=== PATIENT | male | born 1990 | race American Indian/Alaskan Native ===

== ENCOUNTER 2017-12-21 14:50 | Emergency (ER) | payer SELFPAY ==
[2017-12-21 15:55] LABS: Basophils % (Auto) 0.3 % (0.0-1.8); Eosinophils % (Auto) 0.3 % (0.0-4.3); Hematocrit 41.9 % (35.5-45.6); Hemoglobin 13.9 gm/dl (11.8-15.2); Lymphocytes # (Auto) 1.5 K/mm3 (1.2-5.4); Mean Corpuscular HGB Conc 33 % (32-34); Mean Corpuscular Hemoglobin 30 pg (28-32); Mean Corpuscular Volume 89 fl (84-94); Monocytes # (Auto) 0.4 K/mm3 (0.0-0.8); Monocytes % (Auto) 10.4 % (0.0-7.3); Platelet Count 165 K/mm3 (140-440); Red Blood Count 4.72 M/mm3 (3.65-5.03); Red Cell Distribution Width 12.4 % (13.2-15.2)
[2017-12-21 16:17] LABS: Alanine Aminotransferase 13 units/L (7-56); Albumin 4.6 g/dL (3.9-5); BUN/Creatinine Ratio 9; Blood Urea Nitrogen 8 mg/dL (9-20); Calcium 9.2 mg/dL (8.4-10.2); Hemolysis Index 3; Lipase 22 units/L (13-60)
[2017-12-21 18:17] LABS: Bilirubin,Urine NEG (Negative); Blood,Urine NEG (Negative); Color,Urine Yellow (Yellow); Mucus,Urine FEW /HPF; Protein,Urine <15 mg/dL mg/dL (Negative); Urobilinogen,Urine < 2.0 mg/dL (<2.0)
[2017-12-21 20:24] VITALS: BP 117/64
--- NOTE | 2017-12-21 20:38 | Emergency Department Report ---
ED Abdominal Pain HPI - General Chief Complaint: Abdominal Pain Stated Complaint: ABD PAIN/BLOODY STOOL Time Seen by Provider: 12/21/17 20:30 Source: patient Mode of arrival: Ambulatory Limitations: No Limitations - History of Present Illness Initial Comments: Patient is 27 years old male with no significant past medical history. Patient presented to the ER complaining of abdominal pain nausea and diarrhea. Patient stated that his symptoms is been on and off for at least 2-3 years. Patient stated that his pain is crampy in nature and sometimes he will have some blood in his diarrhea just like what happened last night. He denied any weakness, dizziness or lightheadedness. No chest pain or shortness of breath. Patient also denied any fever. MD Complaint: abdominal pain -: year(s) Location: diffuse Radiation: none Migration to: no migration Severity scale (0 -10): 7 Quality: cramping Worsens With: eating, bowel movement Associated Symptoms: nausea, diarrhea. denies: vomiting - Related Data Allergies Allergy/AdvReac Type Severity Reaction Status Date / Time iodine Allergy Angioedema Verified 12/21/17 14:53 shellfish derived Allergy Angioedema Verified 12/21/17 14:53 ED Review of Systems ROS: Stated complaint: ABD PAIN/BLOODY STOOL Other details as noted in HPI Comment: All other systems reviewed and negative Respiratory: denies: cough, orthopnea, shortness of breath, SOB with exertion Gastrointestinal: abdominal pain, nausea, diarrhea, hematochezia. denies: vomiting, hematemesis ED Past Medical Hx - Past Medical History Previous Medical History?: No - Surgical History Past Surgical History?: Yes Additional Surgical History: right knee surgery - Social History Smoking Status: Current Every Day Smoker Substance Use Type: Alcohol ED Physical Exam - General Limitations: No Limitations General appearance: alert, in no apparent distress - Head Head exam: Present: atraumatic, normocephalic, normal inspection - Eye Eye exam: Present: normal appearance - ENT ENT exam: Present: normal exam, normal orophraynx, mucous membranes moist - Neck Neck exam: Present: normal inspection, full ROM. Absent: tenderness, meningismus, lymphadenopathy, thyromegaly - Respiratory Respiratory exam: Present: normal lung sounds bilaterally. Absent: respiratory distress, wheezes, rales, rhonchi - Cardiovascular Cardiovascular Exam: Present: regular rate, normal rhythm, normal heart sounds - GI/Abdominal GI/Abdominal exam: Present: soft, normal bowel sounds. Absent: distended, tenderness, guarding, rebound, rigid, organomegaly, mass, bruit, pulsatile mass , hernia ED Course Vital Signs 12/21/17 12/21/17 12/21/17 14:54 18:55 20:22 Temperature 98.6 F 98.1 F 98.1 F Pulse Rate 72 67 60 Respiratory 14 16 15 Rate Blood Pressure 130/81 Blood Pressure 143/52 117/64 [Right] O2 Sat by Pulse 99 98 98 Oximetry ED Medical Decision Making - Lab Data Result diagrams: 12/21/17 15:33 12/21/17 15:33 - Medical Decision Making Given the chronicity of this presentation. Patient is also told me that he has been dealing with a lot of stress and he noticed that when he stressed his symptoms came back. He also stated that he has been having alternation of constipation and diarrhea. Patient vital signs stable and his hemoglobin is normal. I believe this is could be inflammatory bowel disease versus irritable bowel syndrome. I give the patient a follow-up with his [facility]-and advised him to return to the ER if his symptoms get course. Critical care attestation.: If time is entered above; I have spent that time in minutes in the direct care of this critically ill patient, excluding procedure time. ED Disposition Clinical Impression: Abdominal pain Disposition: DC-01 TO HOME OR SELFCARE Is pt being admited?: No Condition: Stable Instructions: Abdominal Pain (ED) Referrals: SINAI LEAL MD [Staff Physician] - 3-5 Days
== END 2017-12-21 20:59 | disposition home or self-care (01) ==
LOC: ED 14:51
DX: R10.84 Generalized abdominal pain (principal); R11.2 Nausea with vomiting, unspecified; K92.1 Melena; F17.200 Nicotine dependence, unspecified, uncomplicated; Z91.013 Allergy to seafood; Z91.041 Radiographic dye allergy status
CPT/HCPCS: 36415; 80053; 81001; 83690; 85025; 99283

== ENCOUNTER 2020-03-18 18:31 | Emergency (ER) | payer SELFPAY ==
[2020-03-18 18:43] VITALS: BP 131/75
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
== END 2020-03-18 20:39 | disposition home or self-care (01) ==
LOC: ED 18:31
DX: M79.645 Pain in left finger(s) (principal); Z91.013 Allergy to seafood; Z91.041 Radiographic dye allergy status; Z79.899 Other long term (current) drug therapy; Z98.890 Other specified postprocedural states
CPT/HCPCS: 99282